=== PATIENT | female | born 1995 ===

== ENCOUNTER → 2020-09-05 | Outpatient (CLI) | payer MEDICAID, SELFPAY ==
--- NOTE | 2020-09-05 12:48 | REP ---
INDICATION: CONTUSION COMPARISON: None. TECHNIQUE: There are four views. FINDINGS: There is no fracture or dislocation. Mineralization and joint spaces are normal. There are no calcifications or foreign bodies. There is no effusion. IMPRESSION: Essentially negative left elbow. <Electronically signed by Melchor Gong > 09/05/20 2357
== END ==
LOC: M WUC 11:12
PROVIDERS: ATTEND Physician Assistant
DX: S50.02XA Contusion of left elbow, initial encounter (principal); X58.XXXA Exposure to other specified factors, initial encounter; Y92.9 Unspecified place or not applicable; Y99.9 Unspecified external cause status